=== PATIENT | female | born 1970 | race Caucasian/White ===

== ENCOUNTER 2018-09-06 10:00 | Emergency (ER) | payer BC, OTHER ==
[2018-09-06] MEDS ORDERED: Ibuprofen TAB* 600 MG PO ONE (10:32)
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
[2018-09-06 12:06] VITALS: BP 150/89
== END 2018-09-06 12:00 | disposition home or self-care (01) ==
LOC: ED 10:00
DX: S52.91XA Unspecified fracture of right forearm, initial encounter for closed fracture (principal); V19.9XXA Pedal cyclist (driver) (passenger) injured in unspecified traffic accident, initial encounter; Y92.9 Unspecified place or not applicable; Z88.0 Allergy status to penicillin
CPT/HCPCS: 99282; A9270-GY